=== PATIENT | male | born 1970 | race Caucasian/White ===

== ENCOUNTER 2025-03-28 13:58 | Outpatient (CLI) | payer OTHER, SELFPAY | END 2025-03-28 13:59 | disposition home or self-care (01) | PROVIDERS: PCP Family Medicine; Visit Provider Family Medicine | DX: Z00.01 Encounter for general adult medical examination with abnormal findings (principal); E78.2 Mixed hyperlipidemia; R68.82 Decreased libido; R03.0 Elevated blood-pressure reading, without diagnosis of hypertension; Z12.5 Encounter for screening for malignant neoplasm of prostate | CPT/HCPCS: 80048; 80061; 84403; 84443; 85025; G0103 ==

== ENCOUNTER 2025-04-21 08:51 | Outpatient (CLI) | payer OTHER, SELFPAY | END 2025-04-21 08:52 | disposition home or self-care (01) | LOC: NFLDREF 04-25 06:32 | PROVIDERS: PCP Family Medicine; Referring Provider Family Medicine; Visit Provider Family Medicine | DX: R79.89 Other specified abnormal findings of blood chemistry (principal); Z00.00 Encounter for general adult medical examination without abnormal findings; R68.82 Decreased libido; Z12.5 Encounter for screening for malignant neoplasm of prostate; Z13.6 Encounter for screening for cardiovascular disorders; Z13.0 Encounter for screening for diseases of the blood and blood-forming organs and certain disorders involving the immune mechanism; Z13.228 Encounter for screening for other metabolic disorders | CPT/HCPCS: 84403 ==